=== PATIENT | female | born 1990 | race African-American/Black ===

== ENCOUNTER 2018-12-05 07:54 | Emergency (ER) | payer OTHER ==
[2018-12-05 08:33] VITALS: BMI 22.6
--- NOTE | 2018-12-05 08:51 | PDOC ---
History of Present Illness - General Chief Complaint: Psychiatric Stated Complaint: SORE THROAT Time Seen by Provider: 12/05/18 08:19 History Source: Patient, Family Past History - Past Medical History Allergies/Adverse Reactions: Allergies Allergy/AdvReac Type Severity Reaction Status Date / Time No Known Allergies Allergy Verified 12/05/18 08:22 Home Medications: Ambulatory Orders NK [No Known Home Medication] 12/05/18 COPD: No - Immunization History Immunization Up to Date: Yes - Suicide/Smoking/Psychosocial Hx Smoking History: Never smoked Hx Alcohol Use: No Drug/Substance Use Hx: Yes Review of Systems - Review of Systems Constitutional: No: Chills, Fever HEENTM: Yes: Throat Pain Psychiatric: Yes: Anxiety, Mood Swings, Other (personality chnage) *Physical Exam - Vital Signs Last Vital Signs Temp Pulse Resp BP Pulse Ox 97.8 F 75 18 132/84 100 12/05/18 08:23 12/05/18 08:23 12/05/18 08:23 12/05/18 08:23 12/05/18 08:23 - Physical Exam Comments: 12/05/18 10:27 Young woman sitting on stretcher w/ odd affect General Appearance: Yes: Appropriately Dressed. No: Apparent Distress HEENT: positive: Normal Voice. negative: Pharynx Normal, Tonsillar Exudate, Tonsillar Erythema Neck: positive: Supple. negative: Lymphadenopathy (R), Lymphadenopathy (L) Respiratory/Chest: positive: Lungs Clear, Normal Breath Sounds. negative: Respiratory Distress Cardiovascular: positive: Regular Rate, S1, S2 Gastrointestinal/Abdominal: positive: Soft. negative: Tender Extremity: positive: Normal Inspection Integumentary: positive: Dry, Warm Neurologic: positive: Fully Oriented, Alert, Other (odd affect) Moderate Sedation - Procedure Monitoring Vital Signs: Procedure Monitoring Vital Signs Temperature 97.8 F 12/05/18 08:23 Pulse Rate 75 12/05/18 08:23 Respiratory Rate 18 12/05/18 08:23 Blood Pressure 132/84 12/05/18 08:23 O2 Sat by Pulse Oximetry (%) 100 12/05/18 08:23 ED Treatment Course - LABORATORY CBC & Chemistry Diagram: 12/05/18 09:35 12/05/18 09:35 Medical Decision Making - Medical Decision Making 12/05/18 08:55 28 yo F, no known psych hx, BIB father and step-mother for psych evaluation. Per family, pt spends most of her time in [place] and does stay with parents at times. Over the past 6 months, patient has had a change in personality, where she seems more withdrawn and not as social, not engaging in activities that she usually enjoys and now missing days from work. Father states patient has report feeling anxious over the past several weeks and yesterday when he spoke to patient on phone, patient was incoherent and showed up to father's house last night in the cold temperature with no cold or shoes on. Patient able to give history and states she wants help and support and that she feels that people are out to get her. Patient denies auditory or visual hallucination. However, stepmother reports that patient has report hearing voices at home. Patient reports that she has had intermittent thoughts of hurting herself and currently feels that way. No homicidal ideation. No prior psych admissions and no history of prior suicidal attempts. Patient reports occasional marijuana use but denies any other illicit drug use. Per father, patient's biological mother has a history of bipolar See exam Psychosis w/ SI -1:1 -med clearance -psych for 2 [facility] for psych admission 12/05/18 10:28 Discussed case w/ Dr Yu of psychiatry, who states he will come to ED to evaluate patient 12/05/18 12:14 Pt evaluated by , who states patient is psychotic and appears paranoid. 2 PC forms filled out by Ashlee manager sustainability has been paged at this time to assist getting patient inpatient psych bed 12/05/18 19:07 Pt signed out to [facility] pending transfer to inpt psych facility 12/06/18 16:38 After 2 days in the ED, told by ED sr. social media & mobile manager that patient will have a bed ready at [facility] tomorrow a.m. *DC/Admit/Observation/Transfer Diagnosis at time of Disposition: Psychosis Qualifiers: Psychosis type: unspecified psychosis type Qualified Code(s): F29 - Unspecified psychosis not due to a substance or known physiological condition - Discharge Dispostion Disposition: TRANSFER ACUTE CARE/OTHER HOSP - Referrals Referrals: ON STAFF,NOT [Primary Care Provider] - - Patient Instructions - Post Discharge Activity
--- NOTE | 2018-12-05 09:15 | PDOC ---
*Physical Exam - Vital Signs Last Vital Signs Temp Pulse Resp BP Pulse Ox 97.8 F 75 18 132/84 100 12/05/18 08:23 12/05/18 08:23 12/05/18 08:23 12/05/18 08:23 12/05/18 08:23 Heart Score/ECG Review #1 ECG reviewed & interpreted by me at: 09:26 General ECG Interpretation: Sinus Rhythm, Normal Rate (67), Normal Intervals ( qtc 405, qrs 90), No acute ischemic changes (j-point early repol) ED Treatment Course - LABORATORY CBC & Chemistry Diagram: 12/05/18 09:35 12/05/18 09:35 Medical Decision Making - Medical Decision Making 12/05/18 09:13 Patient seen and evaluated with the nurse practitioner. I agree with the overall evaluation, assessment, and management with the following summary of visit: 28-year-old female brought in by parents for worsening alteration in behavior and symptoms of psychosis with thoughts of hurting herself. Presents for evaluation, positive family history of psychiatric disorders Vitals are stable Exam as noted 28-year-old female with new onset psychosis, complicated by hallucinations and possible suicidality without attempt. Begin medical clearance, r/o tox Psychiatric evaluation and disposition 12/05/18 12:[address] Yu, [facility] for acute psychosis. Will arrange transfer. 12/05/18 16:58 awaiting psych transfer/admission. discussing with CM. *DC/Admit/Observation/Transfer Diagnosis at time of Disposition: Psychosis Qualifiers: Psychosis type: unspecified psychosis type Qualified Code(s): F29 - Unspecified psychosis not due to a substance or known physiological condition - Discharge Dispostion Disposition: TRANSFER ACUTE CARE/OTHER HOSP - Referrals Referrals: ON STAFF,NOT [Primary Care Provider] - - Patient Instructions - Post Discharge Activity
[2018-12-05 09:59] LABS: BASO % 0.6 % (0-2.0); HEMATOCRIT 33.3 % (32.4-45.2); HEMOGLOBIN 11.6 GM/dL (10.7-15.3); LYMPH % 13.1 % (8-40); MCH 31.3 pg (25.7-33.7); MCHC 34.8 g/dl (32.0-36.0); MEAN CELL VOLUME 89.9 fl (80-96); MEAN PLT VOLUME 7.8 fl (7.5-11.1); MONO % 7.4 % (3.8-10.2); NEUT % 78.9 % (42.8-82.8); PLATELET COUNT 226 K/MM3 (134-434); RBC 3.71 M/mm3 (3.60-5.2); RDW 13.7 % (11.6-15.6); WHITE BLOOD COUNT 7.4 K/mm3 (4.0-10.0)
[2018-12-05 10:09] LABS: INR 1.07 (0.83-1.09); PROTHROMBIN TIME (PATIENT) 12.6 SEC (9.7-13.0)
[2018-12-05 10:27] LABS: ALBUMIN 3.8 g/dl (3.4-5.0); ALK PHOS 81 U/L (45-117); ANION GAP 10 MMOL/L (8-16); BILIRUBIN,TOTAL 0.4 mg/dL (0.2-1); BLOOD UREA NITROGEN 10 mg/dL (7-18); CALCIUM 8.7 mg/dL (8.5-10.1); CHLORIDE 108 mmol/L (98-107); CO2 24 mmol/L (21-32); CREATININE 0.8 mg/dL (0.55-1.3); GLUCOSE,RANDOM 110 mg/dL (74-106); POTASSIUM 3.7 mmol/L (3.5-5.1); SGOT/AST 26 U/L (15-37); SGPT/ALT 24 U/L (13-61); SODIUM 143 mmol/L (136-145); TOT PROT 7.5 g/dl (6.4-8.2)
--- NOTE | 2018-12-05 11:05 | EKG ---
Test Reason : Blood Pressure : / mmHG Vent. Rate : 067 BPM Atrial Rate : 067 BPM P-R Int : 170 ms QRS Dur : 090 ms QT Int : 384 ms P-R-T Axes : 028 077 048 degrees QTc Int : 405 ms NORMAL SINUS RHYTHM MINIMAL VOLTAGE CRITERIA FOR LVH, MAY BE NORMAL VARIANT BORDERLINE ECG NO PREVIOUS ECGS AVAILABLE Confirmed by LUCIEN RICE MD ([id number]) on 12/05/2018 11:05:24 AM Referred By: Confirmed By:LUCIEN RICE MD
--- NOTE | 2018-12-05 11:50 | CON.PSY ---
Psychiatry Consult Chief Complaint: 28 year old female brought to Er by Father and step mom for displaying Bizzaree and paranoid behaviour. patieny apparantly came to their house from [place] in the cold weather with no shoes on. Patients Biological mom had BipolarvDIsorder. Symptoms: reports: Depersonalization, Disorganized/Disruptive Thoughts, Delusions, Paranoia - Previous Psychiatric Treatment Outpatient: None Inpatient: None - Previous Substance Abuse Treatment Outpatient: None Inpatient: None - Allergies Allergies: Allergies Allergy/AdvReac Type Severity Reaction Status Date / Time No Known Allergies Allergy Verified 12/05/18 08:22 - Current Living Status Usual Living Arrangement: Alone - Current Mental Status Evaluation Appearance: Disheveled Attitude: Suspicious - Affect Affect: Constrictive Appropriateness: Not Appropriate - Mood Mood: Angry - Speech/Language Expressive: Delayed - Psychomotor Activity Psychomotor Activity: Slowed - Thought Process Thought Process: Circumstantial - Thought Content Hallucinations: Absent Delusions: Present Type: Persectory - Self Perception Self Perception: No Impairment - Cognition Attention: Alert Memory, Immediate Recall: Intact Memory, Short Term: 2/3 Memory, Remote with Promptin/3 - Concentration Serial Sevens Intact: No Simple Calculations Intact: Yes - Abstraction Proverb Interpretation: [place] Judgement: Severely Impaired - Insight Insight: Impaired - Impulse Control Impulse Control: Moderately Impaired - Suicidal Ideation Suicidal Ideation: No - Homicidal Ideation Homicidal Ideation: No Assessment/Plan 1) [facility] patient Psych Hospitalization for Acute psychosis and self damaging Behaviour.
[2018-12-05] MEDS ORDERED: ACETAMINOPHEN 325 MG TABLET (FP) PO ONE ×2 (14:22→20:34)
[2018-12-05] MEDS ORDERED: ACETAMINOPHEN 325 MG TABLET (FP) ONE ×2 (14:31→20:36)
[2018-12-05 17:10] LABS: URINE APPEARANCE SLCLOUDY; URINE BILIRUBIN NEGATIVE (<2.0 mg/dL); URINE COLOR YELLOW; URINE GLUCOSE (UA) NEGATIVE (NEGATIVE); URINE KETONE 2+ (NEGATIVE); URINE LEUK ESTERASE TRACE (NEGATIVE); URINE NITRITE NEGATIVE (NEGATIVE); URINE PROTEIN NEGATIVE (NEGATIVE); URINE UROBILINOGEN NEGATIVE mg/dL (0.2-1.0)
[2018-12-05 17:28] LABS: COCAINE, UR NEGATIVE ng/ml (CUTOFF=300); METHADONE, UR NEGATIVE ng/ml (CUTOFF=300); OPIATES, URI NEGATIVE ng/ml (CUTOFF=300); PHENCYCLIDINE,URINE NEGATIVE ng/ml (CUTOFF=25); URINE AMPHETAMINES NEGATIVE ng/ml (CUTOFF=500); URINE BARBITURATES NEGATIVE ng/ml (CUTOFF=200); URINE BENZODIAZEPINES NEGATIVE ng/ml (CUTOFF=200)
[2018-12-05 17:42] LABS: EPI CELLS RARE /HPF (FEW); URINE MUCUS RARE
--- NOTE | 2018-12-05 19:58 | PDOC ---
*Physical Exam - Vital Signs Last Vital Signs Temp Pulse Resp BP Pulse Ox 97.8 F 74 18 130/84 98 12/05/18 08:23 12/05/18 17:00 12/05/18 17:00 12/05/18 17:00 12/05/18 17:00 ED Treatment Course - LABORATORY CBC & Chemistry Diagram: 12/05/18 09:35 12/05/18 09:35 - ADDITIONAL ORDERS Additional order review: Laboratory Results 12/05/18 12/05/18 12/05/18 16:50 16:50 16:50 PT with INR INR Sodium Potassium Chloride Carbon Dioxide Anion Gap BUN Creatinine Creat Clearance w eGFR Random Glucose Calcium Total Bilirubin AST ALT Alkaline Phosphatase Total Protein Albumin TSH Serum , Qual Negative Urine Color Yellow Urine Appearance Slcloudy Urine pH 6.0 Ur Specific Clarissa 1.017 Urine Protein Negative Urine Glucose (UA) Negative Urine Ketones 2+ H Urine Blood Negative Urine Nitrite Negative Urine Bilirubin Negative Urine Urobilinogen Negative Ur Leukocyte Esterase Trace Urine WBC (Auto) 13 Urine RBC (Auto) 3 Ur Epithelial Cells Rare Urine Mucus Rare Salicylates Opiates Screen Negative Methadone Screen Negative Acetaminophen Barbiturate Screen Negative Phencyclidine Screen Negative Ur Amphetamines Screen Negative MDMA (Ecstasy) Screen Negative Benzodiazepines Screen Negative Cocaine Screen Negative U Marijuana (THC) Screen Positive A* 12/05/18 12/05/18 12/05/18 09:35 09:35 09:35 PT with INR 12.60 INR 1.07 Sodium 143 Potassium 3.7 Chloride 108 H Carbon Dioxide 24 Anion Gap 10 BUN 10 Creatinine 0.8 Creat Clearance w eGFR > 60 Random Glucose 110 H Calcium 8.7 Total Bilirubin 0.4 AST 26 ALT 24 Alkaline Phosphatase 81 Total Protein 7.5 Albumin 3.8 TSH 1.04 Serum , Qual Urine Color Urine Appearance Urine pH Ur Specific Clarissa Urine Protein Urine Glucose (UA) Urine Ketones Urine Blood Urine Nitrite Urine Bilirubin Urine Urobilinogen Ur Leukocyte Esterase Urine WBC (Auto) Urine RBC (Auto) Ur Epithelial Cells Urine Mucus Salicylates < 1.7 L Opiates Screen Methadone Screen Acetaminophen < 10 L Barbiturate Screen Phencyclidine Screen Ur Amphetamines Screen MDMA (Ecstasy) Screen Benzodiazepines Screen Cocaine Screen U Marijuana (THC) Screen 12/05/18 09:35 RBC 3.71 MCV 89.9 MCHC 34.8 RDW 13.7 MPV 7.8 Neutrophils % 78.9 Lymphocytes % 13.1 Monocytes % 7.4 Eosinophils % 0.0 Basophils % 0.6 - Medications Given in the ED: ED Medications Discontinued Medications Generic Name Dose Route Start Last Admin Trade Name Roosevelt PRN Reason Stop Dose Admin Acetaminophen 650 mg 12/05/18 14:22 12/05/18 14:35 Tylenol - PO 12/05/18 14:23 650 mg ONCE ONE Administration Medical Decision Making - Medical Decision Making 12/05/18 19:56 2 PCed remains on 1: 1. as per case management specialist note patient pending psych bed/ transfer/ *DC/Admit/Observation/Transfer Diagnosis at time of Disposition: Psychosis Qualifiers: Psychosis type: unspecified psychosis type Qualified Code(s): F29 - Unspecified psychosis not due to a substance or known physiological condition - Discharge Dispostion Disposition: TRANSFER ACUTE CARE/OTHER HOSP - Referrals Referrals: ON STAFF,NOT [Primary Care Provider] - - Patient Instructions - Post Discharge Activity
--- NOTE | 2018-12-06 15:31 | PDOC ---
*Physical Exam - Vital Signs Last Vital Signs Temp Pulse Resp BP Pulse Ox 97.8 F 65 18 137/90 100 12/05/18 08:23 12/06/18 06:00 12/06/18 06:00 12/06/18 06:00 12/06/18 06:00 ED Treatment Course - LABORATORY CBC & Chemistry Diagram: 12/05/18 09:35 12/05/18 09:35 - ADDITIONAL ORDERS Additional order review: 12/05/18 09:35 RBC 3.71 MCV 89.9 MCHC 34.8 RDW 13.7 MPV 7.8 Neutrophils % 78.9 Lymphocytes % 13.1 Monocytes % 7.4 Eosinophils % 0.0 Basophils % 0.6 - Medications Given in the ED: ED Medications Discontinued Medications Generic Name Dose Route Start Last Admin Trade Name Roosevelt PRN Reason Stop Dose Admin Acetaminophen 650 mg 12/05/18 14:22 12/05/18 14:35 Tylenol - PO 12/05/18 14:23 650 mg ONCE ONE Administration Acetaminophen 650 mg 12/05/18 20:34 12/05/18 20:35 Tylenol - PO 12/05/18 20:35 650 mg ONCE ONE Administration Medical Decision Making - Medical Decision Making 12/06/18 15:25 Pt re-evaluated by myself today. Pt is awake, alert, cooperative, but behaving bizarrely. Otherwise, pt is stable and medically cleared. Pt evaluated by Dr. Yu yesterday, recommending 2[facility] for acute psychosis and self-damaging behavior. Sister is at bedside and is aware of the situation. Pt has bed at [facility], available tomorrow morning. [facility] form completed. *DC/Admit/Observation/Transfer Diagnosis at time of Disposition: Psychosis Qualifiers: Psychosis type: unspecified psychosis type Qualified Code(s): F29 - Unspecified psychosis not due to a substance or known physiological condition - Discharge Dispostion Disposition: TRANSFER ACUTE CARE/OTHER HOSP - Referrals Referrals: ON STAFF,NOT [Primary Care Provider] - - Patient Instructions - Post Discharge Activity
[2018-12-07] MEDS ORDERED: diphenhydrAMINE HCL 50 MG CAPSULE PO ONE (01:43)
[2018-12-07 07:05] VITALS: PULSE 71; TEMP 98.1
[2018-12-07] MEDS ORDERED: MIDAZOLAM HCL 2 MG/2 ML SINGLE DOSE VIAL IVPUSH ONE (09:56)
[2018-12-07] MEDS ORDERED: MIDAZOLAM HCL 2 MG/2 ML SINGLE DOSE VIAL ONE (09:58)
[2018-12-07 10:20] VITALS: BP 130/68
== END 2018-12-07 10:22 | disposition short-term general hospital (02) ==
LOC: JER 07:54
PROC: 3E033GC Introduction of Other Therapeutic Substance into Peripheral Vein, Percutaneous Approach (ICD-10-PCS; principal; 2018-12-05)
PROC: 3E033NZ Introduction of Analgesics, Hypnotics, Sedatives into Peripheral Vein, Percutaneous Approach (ICD-10-PCS; 2018-12-05)
DX: F29 Unspecified psychosis not due to a substance or known physiological condition (principal)
CPT/HCPCS: 36415; 80053; 80307; 81003; 81015; 84443; 84703; 85025; 85610; 93005; 93010; 99284-25